=== PATIENT | female | born 1985 | race African-American/Black ===

== ENCOUNTER 2022-04-26 09:35 | Emergency (ER) | payer OTHER ==
[~2022-04-26] VITALS: Ht 160 cm; Wt 108.0 kg
[2022-04-26 11:39] VITALS: BP 140/84
== END 2022-04-26 11:43 | disposition home or self-care (01) ==
LOC: M ED 09:35
DX: S86.911A Strain of unspecified muscle(s) and tendon(s) at lower leg level, right leg, initial encounter (principal); Z79.3 Long term (current) use of hormonal contraceptives; Z88.0 Allergy status to penicillin; Z88.6 Allergy status to analgesic agent; Z88.5 Allergy status to narcotic agent